=== PATIENT | female | born 1955 | race Caucasian/White ===

== ENCOUNTER 2023-11-12 05:31 | Emergency (ER) | payer BC, MEDICARE ==
[2023-11-12] MEDS: HYDROmorphone 2 MG/ML SDV IVPUSH ONE ×2 (06:01→09:30)
[2023-11-12 06:28] LABS: BASOPHILS PERCENT AUTO 0.3 % (0.2-1.5); EOSINOPHILS ABSOLUTE AUTO 0.2 x10-3/uL (0.0-0.8); EOSINOPHILS PERCENT AUTO 1.8 % (0.6-8.1); HEMATOCRIT 39.4 % (34.2-48.2); HEMOGLOBIN 13.7 g/dL (11.4-15.5); LYMPHOCYTES ABSOLUTE AUTO 1.1 x10-3/uL (1.0-4.4); LYMPHOCYTES PERCENT AUTO 9.7 % (18.4-52.1); MEAN CORPUSCULAR HEMOGLOBIN 30.4 pg (23.9-33.9); MEAN CORPUSCULAR HGB CONC 34.8 g/dL (31.9-34.8); MEAN CORPUSCULAR VOLUME 87.3 fL (76.7-100.5); MEAN PLATELET VOLUME 7.7 fL (7.1-12.4); MONOCYTES ABSOLUTE AUTO 0.7 x10-3/uL (0.3-1.0); NEUTROPHILS ABSOLUTE AUTO 9.7 x10-3/uL (1.5-6.3); NEUTROPHILS PERCENT AUTO 82.2 % (30.8-76.2); PLATELET COUNT,PLT 200 x10(3)uL (151-488); RED BLOOD CELL COUNT 4.51 x10(6)uL (3.60-5.20); RED CELL DISTRIBUTION WIDTH 13.7 % (12.3-16.5); WHITE BLOOD CELL COUNT,WBC 11.7 x10-3/uL (3.0-10.3)
[2023-11-12 06:33] LABS: BLOOD UREA NITROGEN,BUN 9 mg/dL (7-18); BUN/CREATININE RATIO 11.3 (9-20); CALCIUM 9.6 mg/dL (8.6-10.2); CARBON DIOXIDE,CO2 24 mmol/L (21-32); CHLORIDE,CL 98 mmol/L (100-110); CREATININE 0.8 mg/dL (0.55-1.02); EST CRCL DRUG DOSING (CG) 62.24 mL/min; ESTIMATED GFR 81 mL/min (>60); GLUCOSE RANDOM 136 mg/dL (80-116); POTASSIUM,K 3.7 mmol/L (3.5-5.3); SODIUM,NA 134 mmol/L (135-145)
[2023-11-12 06:39] LABS: A/G RATIO 0.9; ALANINE AMINOTRANSFERASE,ALT 43 U/L (12-36); ALBUMIN 3.4 g/dL (3.2-4.6); ALKALINE PHOSPHATASE 198 IU/L (56-112); ASPARTATE AMNIOTRANSFERASE,AST 66 IU/L (5-25); BILIRUBIN TOTAL 0.9 mg/dL (0.1-1.3); PROTEIN TOTAL,TP 7.4 g/dL (6.0-8.0)
[2023-11-12] MEDS: Sodium Chloride 0.9% 1,000 ML IV SCH (06:47)
[2023-11-12] MEDS: Iopamidol 755 Mg/ML 100 ML Bottle IV SCH (07:37)
[2023-11-12] MEDS ORDERED: Naloxone 0.4 MG/ML SDV IVPUSH PRN (09:19)
[2023-11-12] MEDS: Ondansetron 4 MG/2 ML SDV IVPUSH ONE (10:19)
[2023-11-14 21:14] LABS: CARCINOEMBRYONIC ANTIGEN 14.2 ng/mL (<=3.8)
== END 2023-11-12 10:50 | disposition home or self-care (01) ==
LOC: FB.ED 05:31
DX: M89.8X8 Other specified disorders of bone, other site (principal); C18.6 Malignant neoplasm of descending colon; I10 Essential (primary) hypertension; Z79.899 Other long term (current) drug therapy
CPT/HCPCS: 36415; 74177; 80053; 82378; 83690; 85025; 85379; 86140; 96361; 96374; 96375; 96376; 99284; J1170; J2405; J7030; Q9967